=== PATIENT | female | born 1950 | race Caucasian/White ===

== ENCOUNTER → 2016-05-26 | Outpatient (CLI) | payer MEDICARE, BC | LOC: LFPA 13:59 | DX: N39.0 Urinary tract infection, site not specified (principal) ==

== ENCOUNTER → 2016-06-26 | Outpatient (CLI) | payer MEDICARE, BC | END | disposition disaster alternative care site (69) | LOC: GBCOE 06-19 15:00 | DX: Z12.31 Encounter for screening mammogram for malignant neoplasm of breast (principal); N63 Unspecified lump in breast; R92.8 Other abnormal and inconclusive findings on diagnostic imaging of breast | CPT/HCPCS: G0202 ==